=== PATIENT | female | born 1955 | race Caucasian/White ===

== ENCOUNTER 2020-11-12 19:57 | Outpatient (CLI) | payer SELFPAY | END 2020-11-12 19:58 | disposition EMS.NT | LOC: EMS 19:57 | DX: R10.9 Unspecified abdominal pain (principal) ==

== ENCOUNTER 2020-11-13 08:00 | Outpatient (CLI) | payer MEDICARE, BC ==
--- NOTE | 2020-11-13 16:14 | XRAY Report ---
PROCEDURE: Abdomen 1 View X-Ray INDICATIONS: RIB PAIN TECHNIQUE: 1 view of the abdomen were acquired. COMPARISON: None FINDINGS: Surgical changes and devices: None. Bowel: No pneumoperitoneum. The bowel gas pattern is normal. Prominent stool is present without ob struction. Soft tissues: No masses; visualized solid organ contours appear normal in size. No suspicious abdom inal calcifications. Bones: No suspicious bony abnormalities. Mild leftward curvature of the lumbar spine with apex at L 1-2. IMPRESSION: Prominent stool consistent with constipation. Reviewed by: Cecy Nguyen MD on 11/13/2020 4:12 PM PDT Approved by: Cecy Nguyen MD on 11/13/2020 4:12 PM PDT Station ID: [id number]
--- NOTE | 2020-11-13 16:15 | XRAY Report ---
PROCEDURE: Ribs w/PA Chest RT INDICATIONS: RIB PAIN TECHNIQUE: 3 views of the right ribs were acquired, along with a single view chest. COMPARISON: None FINDINGS: Surgical changes and devices: None. Bones and chest wall: No fractures or dislocations. No suspicious bony lesions. Overlying soft tis sues appear unremarkable. Lungs and pleura: No pleural effusions or pneumothorax. Linear opacities are noted within the left b ase. Mediastinum: Mediastinal contours appear normal. Heart size is normal. IMPRESSION: No visualized acute fracture or dislocation. However, occult injury cannot be excluded. Recommend danish rt interval imaging follow-up in 7-10 days as clinically indicated for additional evaluation. Left basilar opacities likely atelectasis. Reviewed by: Cecy Nguyen MD on 11/13/2020 4:14 PM PDT Approved by: Cecy Nguyen MD on 11/13/2020 4:14 PM PDT Station ID: [id number]
== END 2020-11-13 23:59 | disposition home or self-care (01) ==
LOC: DI.S 08:00
PROVIDERS: ATTEND Physician Assistant Medical
DX: R10.9 Unspecified abdominal pain (principal); R07.81 Pleurodynia
CPT/HCPCS: 81003; 87086